=== PATIENT | male | born 1945 | race Caucasian/White ===

== ENCOUNTER 2019-07-07 06:25 | Day surgery (SDC) | payer MEDICARE, OTHER ==
[~2019-07-07 06:25] MED LIST: ASPIRIN 325 MG TABLET PO PRN; DIPHENHYDRAMINE HCL 25 MG CAPSULE PO PRN; RADIAL COCKTAIL SYRINGE 10 ML IV PRN
[2019-07-07] MEDS ORDERED: LIDOCAINE 1% INJ-PF (10 MG/ML) 30 ML SDV ONE (07:50)
[2019-07-07] MEDS ORDERED: MIDAZOLAM 2 MG/2 ML INJ ONE (08:09)
[2019-07-07] MEDS ORDERED: FENTANYL CITRATE INJ/PF 100 MCG/2 ML AMPUL ONE (08:09)
[2019-07-07] MEDS ORDERED: HEPARIN SOD (PORCINE) 1,000 UNIT/ML 10 ML VIAL ONE (08:10)
[2019-07-07] MEDS: DIAZEPAM 5 MG TABLET PO PRN ×2 (09:13→09:15)
--- NOTE | 2019-07-07 10:10 | Operative Report ---
Operative Report DATE OF SURGERY: 07/07/19 PREOPERATIVE DIAGNOSIS: Dyspnea on exertion, abnormal stress test with ischemia in the inferior wall POSTOPERATIVE DIAGNOSIS: Noncritical coronary artery disease OPERATION: Left heart catheterization coronary angiography left ventriculography SURGEON: STERLING LANDEROS ANESTHESIA: Moderate Sedation COMPLICATIONS: None PROCEDURE: After informed consent was obtained the patient was brought to the cardiac catheterization lab and the right wrist was prepared in usual sterile and draped manner. Hemodynamic access was gained using micropuncture technique and the patient was anticoagulated with heparin. An intra-arterial cocktail of verapamil and lidocaine was administered. Selective coronary angiography was performed with a [place] catheter. This was exchanged with pigtail catheter and left ventriculography was performed in standard SAVAGE projection. The patient left the Cardiac Catheterization Lab in stable condition, with intact distal pulses and no chest pain or other complications from the procedure. Conscious sedation was initiated, monitored, and maintained during the procedure with the start time of 931 and a completion time of 947 for a total procedure time of 16 minutes. A total of 1 milligrams of Versed and 75 mcg of fentanyl were used for conscious sedation. HEMODYNAMIC DATA: Aortic pressure at the beginning of the case is 91/49 post ventriculography LV pressures 92/8 aortic pressure on pullback 91/50 there is no gradient across the aortic valve CORONARY ANATOMY: [] ANGIOGRAPHY: [Demonstrates very sluggish coronary blood flow in all vascular distributions] VENTRICULOGRAPHY: Ventriculography is performed in the SAVAGE projection and demonstrates [left ventriculography is performed in the standard SAVAGE projection this demonstrates normal regional wall motion visually estimated ejection fraction is in the 60% range there is mild mitral regurgitation present the a sending aorta appears to be upper limits of normal to mildly dilated but without significant aneurysm] . CORONARY ANGIOGRAPHY: [] LEFT MAIN: [Left main is normal] LEFT ANTERIOR DESCENDING: [The LAD is mildly ectatic with luminal irregularities the LAD gives rise to 2 diagonals and is transapical in extent no critical or focal obstructive lesions are seen] CIRCUMFLEX CORONARY: [The circumflex gives rise to several obtuse marginal branches the third is the largest once again minor irregularities in the 10 to 20% range are present no critical or obstructive lesions are seen] RIGHT CORONARY ARTERY: [The right coronary artery is a dominant vessel supplying the PDA and posterolateral branches the proximal right coronary artery has a 30% stenosis and again luminal irregularities are seen throughout the course of this vessel none of which are obstructive] IMPRESSION: [ 1. Normal left ventricular function 2. Mild mitral regurgitation no evidence of aortic stenosis 3. Noncritical coronary artery disease 4. Sluggish coronary flow possibly consistent with microvascular disease CC Dr. Gaby Posey]
[2019-07-07 12:23] VITALS: BP 102/56
== END 2019-07-07 13:00 | disposition home or self-care (01) ==
LOC: CCL 06:25
PROVIDERS: ATTEND Internal Medicine Cardiovascular Disease
DX: R06.09 Other forms of dyspnea (principal); R94.39 Abnormal result of other cardiovascular function study; I25.10 Atherosclerotic heart disease of native coronary artery without angina pectoris
CPT/HCPCS: 82962; 93458; J2250; A9270 ×3; J3010; J1644 ×2; J3490 ×4